=== PATIENT | male | born 1980 | race Caucasian/White ===

== ENCOUNTER 2023-03-03 06:11 | Day surgery (SDC) | payer MEDICAID, SELFPAY ==
[2023-03-03] VITALS (11 sets, daily range): BP systolic 100–130; BP diastolic 64–92; PULSE 57–71; RESP 10–18; TEMP 35.8–36.5; O2SAT 96–100; BMI 31.6
--- NOTE | 2023-03-03 06:40 | W.PM.PROGNOT ---
Date of Service Date of service: 03/03/23 Time of Service: 06:40 Assessment and Plan Assessment and plan (1) Right inguinal hernia: Status: Acute Assessment and plan: I saw Jamie in same-day surgery today for his hernia repair. We reviewed the surgery, risks and benefits and complications. I had a long discussion with Jamie regarding the pathophysiology of hernias as well as the repair.? I am a little bit concerned about the fact that he seems to make a lot of scar tissue.? I discussed with him that with increased scar tissue formation he could have some chronic type pain from the mesh.? Risks, benefits and complications have been reviewed. Complications include but are not limited to bleeding, infection, injury to vas, vessels and nerves, injury to bowel, recurrence (3-5%), chronic pain and adverse reaction to medications. Questions were entertained and answered to their satisfaction and they wished to proceed.? I went over the information slowly with Jamie.? He does have a hard time retaining information so I have given him a lot of written information for him to look at regarding the operation, and the postop care. Subjective Subjective Interval history since last seen: Jamie is here today for a right inguinal hernia repair. He has been having some discomfort in the left inguinal area and wonders whether he is got a hernia on that side. He has not noted a bulge. Otherwise he has no new concerns. Exam Const General: comfortable and no acute distress Resp Effort & Inspection: normal respiratory effort Auscultation: clear to auscultation bilaterally GI Inspection: normal to inspection Palpation: soft, no hepatosplenomegaly and hernia (RIH) Objective Last Vital Signs Temp 97.5 F L 03/03/23 06:23 Pulse 71 03/03/23 06:23 Resp 18 03/03/23 06:23 BP 130/92 H 03/03/23 06:23 Pulse Ox 99 03/03/23 06:23 Time Spent with Patient Time Spent with Patient: 25-34 minutes Time was spent: counseling the patient
--- NOTE | 2023-03-03 06:41 | ROE_ITS ---
Date of service: 03/03/23 Time of Service: 08:34 Operative Note Operative Note DATE OF PROCEDURE: 03/03/23 PRE-OP DIAGNOSIS: right inguinal hernia POST-OP DIAGNOSIS: other (right indirect inguinal hernia) PROCEDURE: RIH repair with mesh SURGEON: Wendy Cortez PACK TRAIN DRIVER: Ebony Bull Refer to Anesthesia Record ESTIMATED BLOOD LOSS: 15 PATHOLOGY: none sent COMPLICATIONS: None Patient was transported to: PACU Patient's condition: stable Implants: PERFIX Light Plug: REF- [id number] LOT- [id number] Findings: Jamie is here today because of a right inguinal hernia which has been causing him pain.? It has been getting larger over the last few months.? I had a long discussion with Jamie regarding the pathophysiology of hernias as well as the repair.? I am a little bit concerned about the fact that he seems to make a lot of scar tissue.? I discussed with him that with increased scar tissue formation he could have some chronic type pain from the mesh.? Risks, benefits and complications have been reviewed. Complications include but are not limited to bleeding, infection, injury to vas, vessels and nerves, injury to bowel, recurrence (3-5%), chronic pain and adverse reaction to medications. Questions were entertained and answered to their satisfaction and they wished to proceed.? I went over the information slowly with Jamie.? He does have a hard time retaining information so I have given him a lot of written information for him to look at regarding the operation, and the postop care. Procedure Description: After informed consent was obtained the patient was taken to the operating room and placed in a supine position. Monitors and SCDs were applied and a timeout was done. The patient's name, date of , procedure type, procedure site, allergies to medications, preoperative antibiotic, and DVT prophylaxis were all reviewed. Fire risk was assessed. Next anesthesia did a tap block on the right side under ultrasound guidance. Please see their separate dictation. Once anesthesia was done the abdomen was prepped and draped in a sterile surgical fashion. 0.5% Marcaine was injected into the dermis in the right lower quadrant. An incision was made with a 10 blade in the right lower quadrant. Dissection was done with cautery through the subcutaneous tissues and Darion's fascia down to the external oblique fascia. The external ring was identified and the external oblique fascia was opened sharply through the external ring. The cut fascia was grasped with hemostats the cord structures were identified and a Dover drain was placed around them. The ilioinguinal nerve was identified and cut. The cremasteric muscle was dissected away from the cord structures using both cautery and blunt dissection. A hernia sac was identified and removed from the cord structures using blunt dissection. The hernia sac was suture ligated and amputated. The remnant was pushed back into the peritoneum. An XL plug was placed into the indirect defect and secured with 3-0 proline. A flat piece of mesh was then attached to the lacunar ligament using a 2-0 Prolene double armed suture. The mesh was secured laterally and medially with a 2-0 Prolene, with a running suture. The tails of the mesh were wrapped around the cord structures effectively cinching down the internal ring. Once the mesh was secured the tissues were irrigated with some normal saline. No bleeding was identified. The external oblique fascia was reapproximated using 2-0 Vicryl running suture. The Daroin's fascia was reapproximated using interrupted 3-0 Vicryl. The dermis was reapproximated with a running 4-0 Vicryl. The skin was cleaned and dried and skin affix was applied. The patient was woken up and taken back to recovery in stable condition. There were no immediate complications. Sponge, instrument and needle counts were correct at the end of the case x2.
--- NOTE | 2023-03-03 06:42 | PDOC.DSDIS_ITS ---
Date of service: 03/03/23 Time of Service: 06:42 Discharge Plan Disposition Patient Disposition: Home Condition: Stable Discharge Details Reason For Visit: RIH repair Attending Provider: Wendy Cortez Primary Care Provider: Cece Deleon Home Meds and New Rx's Prescriptions: New tramadol 50 mg tablet 50 mg PO Q6H PRN (Reason: pain) Qty: 14 0RF Rx Instructions: Postop pain Continued fluticasone propion-salmeterol [Advair Diskus] 250-50 mcg/dose blister with device 1 inh inhalation BID naproxen sodium [Aleve] 220 mg capsule 220 mg PO BID PRN amlodipine 5 mg tablet 5 mg PO DAILY armodafinil 50 mg tablet 50 mg PO BID Centrum Silver 0.4 mg-300 mcg- 250 mcg tablet 1 tab PO DAILY clonidine HCl 0.3 mg tablet 0.3 mg PO DAILY diclofenac sodium [Arthritis Pain (diclofenac)] 1 % gel 2 g topical QID PRN Rx Instructions: apply to single elbow, wrist or hand; for hand includes palm/fingers/back of hand epinephrine 0.3 mg/0.3 mL auto-injector 0.3 mg IM ONCE Rx Instructions: as a single dose; may repeat once fluticasone propionate 50 mcg/actuation spray,suspension 2 spray intranasal DAILY Rx Instructions: administer into each nostril furosemide 20 mg tablet 20 mg PO DAILY lisinopril 10 mg tablet 10 mg PO DAILY loratadine [Allergy Relief (loratadine)] 10 mg tablet 10 mg PO DAILY melatonin 5 mg capsule 5 mg PO HS PRN modafinil 100 mg tablet 100 mg PO DAILY (DME) nebulizer and compressor Device See Rx Instructions .Route Rx Instructions: As directed omeprazole 40 mg capsule,delayed release(DR/EC) 40 mg PO DAILY albuterol sulfate [ProAir HFA] 90 mcg/actuation HFA aerosol inhaler 2 puff inhalation QID propranolol 80 mg capsule,extended release 24hr 80 mg PO DAILY solriamfetol 150 mg tablet 150 mg PO DAILY tramadol 100 mg tablet 100 mg PO QHS Vyvanse 40 mg capsule 40 mg PO QAM Xywav 0.5 gram/mL solution 2.25 g PO BID Rx Instructions: administer the first dose at bedtime and the second dose 2.5-4 hours later Discharge Instructions Instructions: Inguinal Hernia Repair (DC) Additional Instructions: Activity at Home after surgery: 1. Make sure you walk outside at least 4 times per day 2. You should be able to climb a flight of stairs 3. No driving while in pain or taking pain medications 4. No strenuous activity or heavy lifting (no lifting, pulling or pushing >10 lb) for 4 weeks (open surgery) Diet, Nutrition, & wound healin. Avoid alcohol until after you are recovered from your surgery 2. Make sure to eat plenty of lean protein (meat, fish, eggs, cottage cheese, beans) 3. Eat a variety of fruits and vegetables. Eat plenty of high fiber foods to avoid constipation. 4. Drink plenty of liquids to stay hydrated and avoid constipation Pain Medications: 1. Tylenol 650mg every 6 hours as needed and Ibuprofen 600 mg every 6 hours as needed. You may alternate between the 2 medications every 3 hours 2. If a narcotic has been prescribed take as directed only for breakth rough pain For Constipation: 1. Take Milk of Magnesia or MiraLax as needed for constipation Other: 1. You may shower daily. Do not scrub the incisions 2. Do not soak the incisions for 1 week 3. You may alternate ice and heat as needed for pain and swelling Wound Care: 1. Keep the incisions clean and dry Please call our office if you develop: 1. Fevers >101.5 2. Nausea or Vomiting 3. Worsening pain 4. Redness and thick discharge from the wounds If after hours please call the Hospital at and ask to speak to the on-call surgeon Referrals: Wendy Cortez MD [ [facility] STAFF PHYSICIAN] - Activity:: see above Shower/Bathe:: 24 hours Diet:: As Tolerated Discharge Orders Discharge Orders: Discharge Order (Routine); Ordered 03/03/23 Ordered By: Wendy Cortez DS: Diagnosis Discharge Diagnosis (1) Right inguinal hernia: Status: Acute Asessment and Plan: The patient is doing well post-op from their [facility] repair surgery.? They are having no nausea or vomiting. They are tolerating liquids and a snack. The pt is not having any chest pain or SOB.? Their pain is adequately controlled. They have been able to urinate.? he did have some double vision when he woke up. The scolpolamine patch was removed by Anesthesia and his double vision has improved. 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 Will have patient and family monitor and give us a call if there is worsening. he also had some weekness of his RLE. That has also improved and he feels stable on his feet. ?HEENT:? no eye pain/drainage/redness/swelling. Mild sore throat ?Cardio- NSR, no chest pain, BP stable- see VS record ?Pulm: no sob or productive cough. No hemoptysis ?Incision- dressing is c/d/i w/ no excessive bleeding or drainage ?I discussed with the patient the findings at the time of surgery and the patient?s progress. ?We reviewed expectations at home; what the patient could expect for recovery time, and in the post-operative period.? We discussed the importance of walking to avoid blood clots and pneumonia.? We discussed and reviewed the patient's post-operative wound care and dressing needs.?? We reviewed their step-scott pain management plan, Rx called to the pharmacy of their choice.? We reviewed activity and limitations-see discharge instructions. We reviewed warning signs, and when to seek medical attention- see d/c instructions.?? Patient was given a postoperative follow-up appointment. Patient verbalized understanding of their postoperative instructions, how do to take care of themselves and their incision, and the pain management plan. Please see discharge instructions.?
[2023-03-03] MEDS: Gabapentin 300 MG CAP 600 MG PO (06:53)
[2023-03-03] MEDS: Acetaminophen 500 MG TAB 1000 MG PO (06:53)
[2023-03-03] MEDS: Celecoxib 200 MG CAP PO (06:53)
--- NOTE | 2023-03-03 07:01 | W.ANESPRE ---
General Info Date of Service Date Performed: 03/03/23 Height: 5 ft 9 in Weight: 97 kg Body Mass Index (BMI): 31.6 Surgical Procedure: Operation Date: 03/03/23 07:40 Proposed Procedure Side Surgeon p Herniorrhaphy Inguinal Right Wendy Cortez MD Meds Allergies and Home Medications Allergies Allergy/AdvReac Type Severity Reaction Status Date / Time bee pollen Allergy Verified 03/02/23 14:42 mold AdvReac Verified 03/02/23 14:42 dust AdvReac Uncoded 03/02/23 14:42 non-medication chemicals AdvReac Uncoded 03/02/23 14:42 Home Medication Medication Instructions Recorded albuterol sulfate 90 mcg/actuation 2 puff inhalation QID 02/18/23 aerosol inhaler (ProAir HFA) amlodipine 5 mg tablet 5 mg PO DAILY 02/18/23 armodafinil 50 mg tablet 50 mg PO BID 02/18/23 clonidine HCl 0.3 mg tablet 0.3 mg PO DAILY 02/18/23 diclofenac sodium 1 % topical gel 2 g topical QID PRN 02/18/23 (Arthritis Pain (diclofenac)) epinephrine 0.3 mg/0.3 mL 0.3 mg IM ONCE 02/18/23 injection, auto-injector fluticasone 250 mcg-salmeterol 50 1 inh inhalation BID 02/18/23 mcg/dose blistr powdr for inhalation (Advair Diskus) fluticasone propionate 50 2 spray intranasal DAILY 02/18/23 mcg/actuation nasal spray,suspension furosemide 20 mg tablet 20 mg PO DAILY 02/18/23 lisdexamfetamine 40 mg capsule 40 mg PO QAM 02/18/23 (Vyvanse) lisinopril 10 mg tablet 10 mg PO DAILY 02/18/23 loratadine 10 mg tablet (Allergy 10 mg PO DAILY 02/18/23 Relief (loratadine)) melatonin 5 mg capsule 5 mg PO HS PRN 02/18/23 modafinil 100 mg tablet 100 mg PO DAILY 02/18/23 enrbfkkk-poq-yqtxd acid 0.4 1 tab PO DAILY 02/18/23 mg-lycopene 300 mcg-lutein 250 mcg tablet (Centrum Silver) naproxen sodium 220 mg capsule 220 mg PO BID PRN 02/18/23 (Aleve) nebulizer and compressor 02/18/23 omeprazole 40 mg capsule,delayed 40 mg PO DAILY 02/18/23 release propranolol 80 mg capsule,24 80 mg PO DAILY 02/18/23 hr,extended release sodium, calcium, magnesium, 2.25 g PO BID 02/18/23 potassium oxybates 0.5 gram/mL oral soln (Xywav) solriamfetol 150 mg tablet 150 mg PO DAILY 02/18/23 tramadol 100 mg tablet 100 mg PO QHS 02/18/23 Current Visit Medications: Current Medications Generic Name Dose Route Start Last Admin Trade Name Freq PRN Reason Stop Dose Admin Acetaminophen 1,000 mg 03/03/23 06:00 Acetaminophen 500 Mg Tab PO 03/03/23 23:59 PREOP JULIÁN Celecoxib 200 mg 03/03/23 06:00 Celecoxib 200 Mg Cap PO 03/03/23 23:59 PREOP JULIÁN Gabapentin 600 mg 03/03/23 06:00 Gabapentin 300 Mg Cap PO 03/03/23 23:59 PREOP JULIÁN Ringer's Solution 1,000 mls @ 80 mls/hr 03/03/23 06:00 IV 03/03/23 23:59 INFUSION JULIÁN Cefazolin Sodium/Dextrose 2 gm in 50 mls @ 100 mls/hr 03/03/23 06:00 Ancef Duplex IVPB 03/03/23 23:59 PREOP JULIÁN Ondansetron HCl 4 mg/ Sodium 52 mls @ 200 mls/hr 03/03/23 06:43 Chloride IVPB 04/02/23 06:42 Q6H PRN PRN IV Miscellaneous Supplies 1 each 03/03/23 06:00 Iv Access IV 03/03/23 23:59 DIRECTED JULIÁN Sodium Chloride 0 ml 03/03/23 06:00 Normal Saline Flush 10 Ml Syr IV 03/03/23 23:59 PRN PRN Sodium Chloride 0 ml 03/03/23 06:00 Normal Saline 10 Ml Vial IJ 03/03/23 23:59 DIRECTED PRN Sterile Water 0 ml 03/03/23 06:00 Water,Injection,Sterile 10 Ml Vial IJ 03/03/23 23:59 DIRECTED PRN PFSH Active Problems Active Problems: Problem Status Onset Code Difficulty urinating R39.198 Right inguinal hernia K40.90 History of traumatic brain injury Z87.820 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 JOSE L (obstructive sleep apnea) G47.33 Dyslexia R48.0 Disorder of vision H53.9 Degenerative joint disease involving multiple joints M15.9 Chronic pain syndrome G89.4 Chronic insomnia F51.04 Attention deficit disorder of adult with hyperactivity F90.9 Anxiety disorder F41.9 Medical History Medical History Acute asthma Arthritis Arthropathy Concussion injury of body structure Depressive disorder Encounter for lumbar puncture 06/09/2016 Epigastric pain Essential hypertension Leg cramps Lesion of ulnar nerve Lumbar radiculopathy Neuropathy PLMD (periodic limb movement disorder) Shoulder pain Surgical History Surgical History H/O nasal septoplasty 01/27/19 H/O wrist surgery History of carpal tunnel surgery 09/11/2015 08/27/2015 History of colonoscopy 12/16/18 History of decompression of median nerve History of esophagogastroduodenoscopy (EGD) 12/16/2018 History of uvulectomy Hx laparoscopic cholecystectomy 03/06/19 Tobacco Smoking/Tobacco Use Status: Never Alcohol Alcohol Intake: current Alcohol intake frequency: a few times a week Alcohol type: beer Substance Use Substance use: Never Substance use type: does not use Vital Signs and Lab Results Vital Signs Most Recent Vital Signs in EMR: Most Recent Vital Signs Temp Pulse Resp BP Pulse Ox 36.4 C L 71 18 130/92 H 99 03/03/23 06:23 03/03/23 06:23 03/03/23 06:23 03/03/23 06:23 03/03/23 06:23 Lab Results Blood Type / Crossmatch: No Data to Display Complete Blood Count: No Data to Display Complete Metabolic Panel: No Data to Display Liver Function Panel: No Data to Display Coagulation Panel: No Data to Display Cardiac Panel: No Data to Display Arterial Blood Gas: No Data to Display Venous Blood Gas: No Data to Display Pancreas Panel: No Data to Display Thyroid Panel: No Data to Display Infectious Disease: No Data to Display Blood Cultures: No Data to Display Toxicology Panel: No Data to Display Anesthesia Assessment and Plan Anesthesia History Personal History: No History of Anesthesia Complications Family History: No Family History of Anesthesia Complications Exercise Tolerance Exercise Tolerance: Metabolic Equivalents>4 Pertinent Negatives Pertinent Negatives: No Symptoms of GERD, No Major Cardiovascular Symptoms or Complaints and No Major Pulmonary Symptoms or Complaints Cardiac & Pulmonary Exam Cardiac Exam: Normal S1/S2 Heart Sounds Pulmonary Exam: Clear Bilateral Breath Sounds Implantable Cardiac Device Does patient have a Pacemaker or an ICD?: No Airway Exam Known Difficult Airway: No Mallampati Class: 2 Mouth Opening: Normal (> 3cm) Thyromental Distance: Greater than 3 cm Neck Range of Motion: Full ROM Neck Circumference: Normal Teeth Condition: Normal Dentition (some chipped teeth) Airway Comments: No uvula, ASA Classification ASA Score: ASA 2 Emergency Case?: No NPO Status NPO Status: NPO Clears >2 hours, Solids >8 hours Anesthesia Plan Resuscitation Status: Full Code Anesthesia Technique: General Anesthesia Airway Planned: Endotracheal Tube Pain Management: Surgeon and patient request nerve block Monitors Used: Standard Monitors
[2023-03-03] MEDS: Lactated Ringers 1,000 ML 80 ML IV (07:08)
[2023-03-03] MEDS: ceFAZolin 2 GM/50 ML BAG IVPB (07:37)
--- NOTE | 2023-03-03 08:02 | W.ANESNERVE ---
Nerve Block Single Injection Procedure Date and Time Date Performed: 03/03/23 Procedure Start: 07:46 Location Where Procedure Performed Procedure Location: Operating Room Procedure Stop: 07:54 Reason Performed: Postoperative Analgesia Requesting Provider: Wendy Cortez Timeout Performed Timeout Performed: Yes Monitoring Used ECG, Blood Pressure, SpO2 and ETCO2 Sterility Sterility: Hand Hygiene, Surgical Cap, Surgical Mask, Sterile Gloves and Chlorhexidine Sedation Given During Procedure Sedation Given (Indicate Dose Given): No Sedation given Patient Mental Status Patient Mental Status: Performed under general anesthesia Nerve Block 1st Nerve Block: Laterality: Right Block Type: TAP Unilateral Ultrasound Image Saved?: Yes Needle / Catheter Used: 100mm SonoPlex II Local Anesthetic Bolus (Indicate Dose Given): Injected in 3-5ml increments after negative blood aspiration and Bupivacaine 0.25% Dose:: 20 ml Additives (Indicate Dose Given): None Ultrasound: Sterile probe cover and gel used Nerve Stimulator: Not Used Paresthesia: None Procedure Tolerated: No Complications and Patient tolerated well Procedure Outcome: Successful Performed By: Eugene Denny
[2023-03-03] MEDS: Bupivacaine 0.25% Pres-Free 30 ML VIAL (08:28)
[2023-03-03] MEDS: fentaNYL 100 MCG/2 ML VIAL IVP (09:23)
--- NOTE | 2023-03-03 10:49 | PDOC.ANES ---
Date of service: 03/03/23 Time of Service: 10:20 Anesthesia Note Report Anesthesia Note: Asked to see pt for complaint of double vision. Normal CSM's in all extremities, equal smile. No SOB/Chest pain or headache. This is unlikely to be related to the nerve block and does not support a neurology emergency. This is very likely due to scopolamine patch behind his left ear. This patch was removed and medication wiped away. This will most liekly resolve overt eh next few hours. If pt. is comfortable with this plan, we will plan on discharge when he meets criteria.
[2023-03-03] MEDS: traMADol 50 MG TAB PO (11:16)
--- NOTE | 2023-03-03 12:12 | W.ANESPOSTOP ---
Postoperative Evaluation Date, Time and Location Date Performed: 03/03/23 Time Performed: 12:12 Patient Location: Day Surgery Unit Vital Signs Most Recent Imported Vital Signs: Most Recent Vital Signs Temp Pulse Resp BP Pulse Ox 35.9 C L 57 L 18 114/77 100 03/03/23 11:17 03/03/23 11:17 03/03/23 11:17 03/03/23 11:17 03/03/23 11:17 Pain Score Most Recent Pain Score: Most Recent Pain Score Pain Level 4 03/03/23 11:40 Assessment Mental Status: Awake (Alert & Oriented to Patient Baseline) Airway and Respiratory Function: Patent airway with normal (patient baseline) respiratory exam Cardiovascular Function: Hemodynamically Stable Hydration Status: Adequately Hydrated Nausea & Vomiting: No Nausea or Vomiting Pain: Pain is tolerable per patient Peripheral Nerve Block: Regional nerve block not resolved at time of post operative discharge Postoperative Comments:: Double vision is improving. Noted some quad weakness to the ispsilateral side as the surgical site. Dicussed likelihood of block versus local from hernia, while possibly the block I am leaning due to proximity most likley local from the surgical site. Either way the quad weakness should resolve as the local anesthetic is cleared over the next 24-48 hours. I did recommend the patient not move cows today as he does not have full mobility and did have a local anesthetic today. Patient demonstrated understanding, denied quesitons. Appropriate for discharge.
== END 2023-03-03 12:15 | disposition home or self-care (01) ==
PROVIDERS: PCP Internal Medicine; Visit Provider Surgery
PROC: (CPT 49505; principal; 2023-03-03 07:30)
DX: K40.90 Unilateral inguinal hernia, without obstruction or gangrene, not specified as recurrent (principal); G47.33 Obstructive sleep apnea (adult) (pediatric); I10 Essential (primary) hypertension; J45.909 Unspecified asthma, uncomplicated
CPT/HCPCS: 49505; 76942; C1781; J0690; J1100; J2250; J2405; J3010

== ENCOUNTER 2023-03-12 09:49 | Outpatient (REF) | payer MEDICAID, SELFPAY ==
[2023-03-12 10:14] LABS: Bilirubin Negative (Negative); Blood Negative (Negative); Clarity Clear (Clear); Glucose Negative (Negative); Ketones Negative (Negative); Leukocyte Esterase Negative (Negative); Nitrite Negative (Negative); Urobilinogen 0.2 mg/dL (Up to 0.2)
[2023-03-12 10:50] LABS: BUN 20 mg/dL (7-18); CREATININE 0.9 mg/dL (0.70-1.30); Calcium 9.1 mg/dL (8.5-10.1); Chloride 104 mmol/L (98-107); Estimated GFR 108.01 (mL/min/1.73m2); Glucose 100 mg/dL (74-106); Magnesium 2.1 mg/dL (1.8-2.4); Sodium 139 mmol/L (136-145)
== END 2023-03-12 09:50 | disposition home or self-care (01) ==
LOC: LBN 09:49
PROVIDERS: PCP Internal Medicine; Visit Provider Surgery
DX: R39.89 Other symptoms and signs involving the genitourinary system (principal); R32 Unspecified urinary incontinence; R39.198 Other difficulties with micturition; I10 Essential (primary) hypertension; Z87.820 Personal history of traumatic brain injury
CPT/HCPCS: 80048; 81003; 83735

== ENCOUNTER 2023-03-31 02:00 | Outpatient (CLI) | payer MEDICAID, SELFPAY ==
--- NOTE | 2023-03-31 07:00 | DI.US_ITS ---
Exam(s) US RENAL EXAM: US RENAL CLINICAL HISTORY: urinary incontinence,nocturnal eneuresis,n39.44,r32. TECHNIQUE: Rodriguez scale, color and spectral Doppler were used. COMPARISON: No exams were available for comparison FINDINGS: Renal size in cm: Right: 10.9. Left: 11.9. Echogenicity: Normal. Hydronephrosis: No. Cyst or mass: No. Nephrolithiasis: No. Other findings: None. Bladder:Normal. Ureteral jets: Right: Visualized and unremarkable. Left: Visualized and unremarkable. Prevoid vol:347 cc Postvoid vol:0 cc Prostate: 36 cc Renal color flow: Symmetric and within normal limits. IMPRESSION: 1. Mildly enlarged prostate gland. 2. Complete emptying of the bladder upon voiding. No evidence of postvoid urinary bladder volume res idual. 3. Unremarkable kidneys. DATA REPOSITORY:
== END 2023-03-31 02:20 ==
LOC: DI 02:00
PROVIDERS: PCP Internal Medicine; Visit Provider Surgery
DX: N39.44 Nocturnal enuresis (principal); R32 Unspecified urinary incontinence; N40.1 Benign prostatic hyperplasia with lower urinary tract symptoms
CPT/HCPCS: 76770

== ENCOUNTER 2023-11-03 09:11 | Outpatient (CLI) | payer MEDICAID, SELFPAY ==
[2023-11-03] VITALS (11 sets, daily range): BP systolic 151–187; BP diastolic 100–117; PULSE 61–74; RESP 16–77; TEMP 36.7; O2SAT 96–100
--- NOTE | 2023-11-03 11:00 | DI.RAD_ITS ---
Exam(s) XR CHEST 2V PA LATERAL EXAM: XR CHEST 2V PA LATERAL CLINICAL HISTORY: r/o Pneumothorax TECHNIQUE: 2D digital imaging was performed of the chest. Two images were obtained. PA and lateral views were obtained. COMPARISON: No exams were available for comparison FINDINGS: MEDIASTINUM: Normal. HEART: Normal. PULMONARY VASCULATURE: Normal. LUNGS: Clear. PLEURAL SPACE: No pleural effusion or pneumothorax. BONE:Within normal limits for the patient's age. There is an old distal left clavicular fracture def ormity. OTHER FINDINGS:Normal. IMPRESSION: No acute pulmonary findings. DATA REPOSITORY: RADIATION DOSE DELIVERED:
[2023-11-03] MEDS: methylPREDNISolone ACETATE 40 MG/ML VIAL IJ (12:11)
[2023-11-03] MEDS: Lidocaine 2% Pres-Free 5 ML VIAL IJ (12:11)
--- NOTE | 2023-11-03 15:17 | PDOC.PAIN ---
Date of service: 11/03/23 Time of Service: 11:30 US Guided Injections Type of Ultrasound Guided Injection: Middle back Bilateral Paraspinous and Rhomboid muscle and Neck Bilateral Trapezius muscle Trigger Point Injection Pre-Procedural Evaluation Tenderness to palpation over the muscles proposed to inject Referral Patient has been referred to the [facility] for Bilateral Paraspinous and Rhomboid muscle Middle back and Bilateral Trapezius muscle Neck Trigger Point Injection for a chief complaint of mid-back and lower neck pain Pre-Procedural Pain Score Pre-procedural pain score: 7/10 Reason for Exam Muscle pain Patient Interview Patient was interviewed and medical record reviewed: Yes There were no contraindications to performing an US guided procedure. Risks,expected side effects, potential benefits were reviewed. The patient consent form was signed and witnessed. Standard time out procedure was performed. Patient Safety No skin issues over the area to be injected Procedure Description No sedation given for procedure Patient was placed in the prone position and the following Pulse Ox applied. Pre-Procedure ultrasound scanning performed using a Linear 9 MHz probe Site Preparation Chloroprep Local Anesthesia Skin and subcutaneous tissues anesthetized with: 10 mL of Lidocaine 2%. A 21 G 3.5 Pajunk ultrasound needle was placed under live US guidance using an in-plane approach to the target area. After visualization of the needle tip at the target area Depo-Medrol 40mg per cc were used. Total of Injectate/Medication Note: 1cc Negative aspiration for blood. [place] were removed without difficulty. Ultrasound images were captured and stored. Patient Mental Status Patient was alert during procedure Vital Signs Vital signs were stable throughout the procedure and recorded by nursing. Follow Up/Discharge Follow up plans and appointments were discussed with patient. Post procedure instruction was given as documented in nursing documentation. Post Procedure Pain Post Procedure Pain: 3/10 Patient tolerated procedure well Procedure Outcome: Successful Comments: He did have some back and chest spasms as well as a hard time finding words and taking a deep breath after the procedure. We did watch him for one hour after the procedure and the symptoms resolved. We did obtain an X-ray of the chest to rule out pneuomothorax as the procedure was completed over the lungs and he was having some difficulty taking deep breaths. His pulse ox was normal the entire time. His chest x-ray was negative for pneumothorax. After an hour of observation, he was found to be able to walk on his own and felt good by his own account. He was discharged with his father at that time. He will call back, call his PCP, or go to an ED if his symptoms return. Trigger Point Injection 3+muscles Non US Guided Injections Procedure Description Patient was placed in the prone position Post Procedure Pain Post Procedure Pain: 3
== END 2023-11-03 09:12 | disposition home or self-care (01) ==
LOC: PC 09:12
PROVIDERS: PCP Internal Medicine; Visit Provider Preventive Medicine Occupational Medicine
DX: M54.6 Pain in thoracic spine (principal); M54.2 Cervicalgia
CPT/HCPCS: 00123; 20553; 76942; 71046; J1030

== ENCOUNTER 2023-11-23 11:30 | Outpatient (CLI) | payer MEDICAID, SELFPAY ==
[2023-11-23 17:56] LABS: PSA, Screening 1.2 ng/mL (<=2.5)
== END 2023-11-23 11:31 | disposition home or self-care (01) ==
LOC: LBO 11:31
PROVIDERS: PCP Internal Medicine; Visit Provider Nurse Practitioner Gerontology
DX: R39.198 Other difficulties with micturition (principal); R39.89 Other symptoms and signs involving the genitourinary system; N39.44 Nocturnal enuresis; R36.1 Hematospermia; Z12.5 Encounter for screening for malignant neoplasm of prostate
CPT/HCPCS: 36415; 84153

== ENCOUNTER → 2023-11-24 01:16 | Outpatient (CLI) | payer MEDICAID, SELFPAY ==
--- NOTE | 2023-11-24 12:00 | DI.US_ITS ---
Exam(s) US SCROTUM EXAM: US SCROTUM CLINICAL HISTORY: b/l scrotal pain L>R,n50.82 TECHNIQUE: Ultrasound of the testes performed using grayscale, color, and Doppler imaging. COMPARISON: US POCUS EXAM from 11/03/2023 FINDINGS: RIGHT HEMISCROTUM: The right testicle exhibits normal size and echo architecture with no evidence of intratesticular mas s. Vascular flow was demonstrated within the right testicle, including arterial waveforms. The epididymis appears unremarkable. There are no epididymal head cysts. Mild right hydrocele noted. No varicocele. LEFT HEMISCROTUM: The left testicle exhibits normal size and echo architecture with no evidence of intratesticular mass . Vascular flow is demonstrated within the left testicle, including arterial waveforms. The epididymis appears unremarkable. There are no epididymal head cysts. Small left hydrocele. IMPRESSION: 1. No evidence of testicular mass nor testicular torsion. 2. Small hydroceles are seen bilaterally, right larger than left. 3. Mild left varicocele. DATA REPOSITORY:
== END ==
PROVIDERS: PCP Internal Medicine; Visit Provider Nurse Practitioner Gerontology
DX: N50.82 Scrotal pain (principal)
CPT/HCPCS: 76870

== ENCOUNTER 2024-07-13 01:15 | Outpatient (CLI) | payer MEDICAID, SELFPAY ==
--- NOTE | 2024-07-13 12:13 | DI.CT_ITS ---
Exam(s) CT ABDOMEN PELVIS WO/W EXAM: CT ABDOMEN PELVIS WO/W CLINICAL HISTORY: hematuria workup,R31.0. TECHNIQUE: Imaging Protocol: Axial computed tomography images with coronal and sagittal reformatted images were created and reviewed. Images were performed from the lung bases through the ischial tuberosities before IV contrast and fol lowing IV contrast using a 70 second delay, followed by 7 minutes delayed images. CONTRAST MATERIAL: Intravenous: Omnipaque 350 Contrast volume:100 cc Oral: no COMPARISON: US US RENAL from 03/31/2023 FINDINGS: Lung Bases: Normal where visualized. Liver: Normal density. No measurable mass. Gallbladder and biliary tract: No biliary dilation. Pancreas: Normal density, no abnormal calcifications or inflammatory process. Spleen: Normal. Kidneys: Normal size, contour and axis. No radiodense stones or obstructive uropathy. 14 millimeter c ircumscribed low-density lesion is noted at the upper pole of the right kidney. Not definitely a sim ple cyst. Adrenal glands: No masses seen. Lymph nodes: Within normal limits. Abdominal Aorta: Abdominal portion non-dilated. Soft tissues: Unremarkable. Bladder: Mild diffuse wall thickening however the bladder is not well distended.. No evidence of a m ass.No evidence of calculi. Bowel: Stomach unremarkable. No obstruction or bowel wall thickening. Appendix normal. Peritoneal cavity: No ascites, collection or mesenteric inflammatory response. Bones: Unremarkable for age.. Reproductive organs: Prostate is slightly enlarged. IMPRESSION: 14 millimeter low-density lesion at the upper pole of the right kidney is not definitely a simple cys t. Due to its small size it is somewhat difficult to characterize. MRI should be considered further evaluation given history of hematuria. No evidence of urinary tract calculi. No evidence of hydronephrosis. RADIATION DOSE DELIVERED: Total DLP DATA REPOSITORY: All CT scans at this facility are submitted to the National Radiology Data Registry (NRDR) Dose Index Registry (DIR) with the [employer] ([employer]). RADIATION OPTIMIZATION: All CT scans at this facility use at least one of these dose optimization te chniques: automated exposure control; mA and/or kV adjustment per patient size (includes targeted exa ms where dose is matched to clinical indication); or iterative reconstruction.
[2024-07-13] MEDS: Normal Saline - Diluent 50 ML VIAL IJ (15:19)
[2024-07-13] MEDS: Omnipaque 350 MG/ML 100 ML BTL IJ (15:19)
[2024-07-14 08:16] LABS: Estimated GFR 94.59 (mL/min/1.73m2)
== END 2024-07-13 01:35 ==
LOC: DI 01:15
PROVIDERS: Nurse Practitioner Gerontology; PCP Internal Medicine; Visit Provider Urology
DX: N20.0 Calculus of kidney
CPT/HCPCS: 74178; 82565; J3490

== ENCOUNTER 2024-09-28 16:30 | Outpatient (CLI) | payer MEDICAID, SELFPAY ==
[2024-09-28 16:00] LABS: Abs Immature Grans 0.06 10^3/uL (0.0-0.06); Absolute Basophil Count 0.05 10^3/uL (0.0-0.2); Absolute Eosinophil Count 0.21 10^3/uL (0.0-0.7); Absolute Lymphocyte Count 2.07 10^3/uL (1.2-3.4); Absolute Monocyte Count 0.58 10^3/uL (0.1-0.8); Absolute Neutrophil Count 3.83 10^3/uL (1.2-6.7); Basophils % 0.7 %; Eosinophils % 3.1 %; HCT 43.6 % (40.0-50.0); HGB 15.2 g/dL (13.5-17.5); Immature Grans % 0.9 %; Lymphocytes % 30.4 %; MCH 30.8 pg (27.0-33.0); MCHC 34.9 % (32.0-36.0); MCV 88 fL (80-95); Monocytes % 8.5 %; Neutrophils % 56.4 %; Platelet Count 175 10^3/uL (130-400); RBC 4.93 10^6/uL (4.36-5.78); RDW 12.3 % (11.8-14.1); RDW-SD 39.8 fL
[2024-09-28 16:08] LABS: Hemoglobin A1C 5.4 % (<5.7)
[2024-09-28 16:43] LABS: C-Reactive Protein < 0.50 mg/dL (<or=0.5)
== END 2024-09-28 16:31 | disposition home or self-care (01) ==
LOC: LBO 16:31
PROVIDERS: PCP Internal Medicine; Referring Provider Surgery; Visit Provider Surgery
DX: R10.31 Right lower quadrant pain (principal); Z83.3 Family history of diabetes mellitus
CPT/HCPCS: 36415; 83036; 85025; 86140

== ENCOUNTER 2024-10-26 15:46 | Outpatient (CLI) | payer MEDICAID, SELFPAY ==
--- NOTE | 2024-10-26 14:45 | DI.RAD_ITS ---
Exam(s) XR WRIST RT COMPL NAVICULAR EXAM: XR WRIST RT COMPL NAVICULAR CLINICAL HISTORY: Chronic right wrist pain, M25.531. TECHNIQUE: 2D digital imaging was performed. Three views. COMPARISON: No exams were available for comparison FINDINGS: BONES: No acute fracture is present. No bony destructive lesion is seen. JOINTS: The carpal bones are normally aligned. There are mild degenerative changes at the scaphoid t rapezium joint. SOFT TISSUE: Normal. IMPRESSION: Mild degenerative changes at the scaphoid trapezium joint. DATA REPOSITORY: RADIATION DOSE DELIVERED:
== END 2024-10-26 16:06 ==
LOC: DI 15:47
PROVIDERS: PCP Internal Medicine; Visit Provider Preventive Medicine Occupational Medicine
DX: M25.531 Pain in right wrist (principal)
CPT/HCPCS: 73110

== ENCOUNTER 2025-01-25 13:02 | Outpatient (CLI) | payer MEDICAID, SELFPAY ==
[2025-01-25 13:12] VITALS: BP 126/73; PULSE 79; RESP 20; TEMP 36.6; O2SAT 98
[2025-01-25 13:40] VITALS: PULSE 76; O2SAT 95
[2025-01-25 13:50] VITALS: PULSE 72; O2SAT 97
[2025-01-25 14:00] VITALS: PULSE 71; O2SAT 96
--- NOTE | 2025-01-25 14:04 | PDOC.PAIN_ITS ---
Date of service: 01/25/25 Time of Service: 14:04 US Guided Injections Type of Ultrasound Guided Injection: Lower back Bilateral Paraspinous muscle and Middle back Bilateral Paraspinous muscle Trigger Point Injection Pre-Procedural Evaluation Back pain Referral Patient has been referred to the [facility] for Bilateral Paraspinous muscle Lower back and Bilateral Paraspinous muscle Middle back Trigger Point Injection for a chief complaint of Pre-Procedural Pain Score Pre-procedural pain score: 4/10 Reason for Exam Back pain Patient Interview Patient was interviewed and medical record reviewed: Yes There were no contraindications to performing an US guided procedure. Risks,expected side effects, potential benefits were reviewed. The patient consent form was signed and witnessed. Standard time out procedure was performed. Patient Safety No skin issues at the sites of he proposed injections Procedure Description No sedation given for procedure Patient was placed in the prone position and the following Pulse Ox applied. Pre-Procedure ultrasound scanning performed using a Linear 9 MHz probe Site Preparation Chloroprep Local Anesthesia Skin and subcutaneous tissues anesthetized with: 5 mL of Lidocaine 2%. A 21 G 3.5 Pajunk ultrasound needle was placed under live US guidance using an in-plane approach to the target area. After visualization of the needle tip at the target area Depo-Medrol 40mg per cc and Lidocaine 2% were used. Total of Injectate/Medication Note: 1cc Depomedrol and 10 cc of 2% Lidocaine Negative aspiration for blood. [place] were removed without difficulty. Ultrasound images were captured and stored. Patient Mental Status Patient was alert and awake during procedure Vital Signs Vital signs were stable throughout the procedure and recorded by nursing. Follow Up/Discharge Follow up plans and appointments were discussed with patient. Post procedure instruction was given as documented in nursing documentation. Discharge criteria met and patient discharged from [facility]: Yes Post Procedure Pain Post Procedure Pain: 4/10 Patient tolerated procedure well Procedure Outcome: Successful Non US Guided Injections Procedure Description Patient was placed in the prone position Post Procedure Pain Post Procedure Pain: 4/10 Coding Conscious Sedation used for procedure: No CPT Codes: TPI Single/Multi >3 Muscles *BILATERAL* - [id number] ([id number]~G5) Additional Codes: Visualization of the needle tip - Ultrasound images captured/stored: Yes ([id number]) Date of Service ([id number]) Date of service: 01/25/25
[2025-01-25] MEDS: methylPREDNISolone ACETATE 40 MG/ML VIAL IJ (14:11)
[2025-01-25] MEDS: Nerve Block Tray 1 EACH MC (14:11)
[2025-01-25] MEDS: Lidocaine 2% Multi-Dose 20 ML VIAL IJ (14:11)
== END 2025-01-25 13:03 | disposition home or self-care (01) ==
LOC: PC 13:03
PROVIDERS: PCP Internal Medicine; Visit Provider Preventive Medicine Occupational Medicine
DX: M54.50 Low back pain, unspecified (principal); M54.6 Pain in thoracic spine
CPT/HCPCS: 20553; 76942; J1010; J2003

== ENCOUNTER 2025-02-09 00:33 | Outpatient (CLI) | payer MEDICAID, SELFPAY ==
--- NOTE | 2025-02-09 06:39 | DI.MRI_ITS ---
Exam(s) MR UPPER JOINT RT WO EXAM: MR UPPER JOINT RT WO CLINICAL HISTORY: PAIN rt wrist, instability rt wrist joint,m25.331. TECHNIQUE: Multiplanar multisequence MRI was performed. COMPARISON: None. FINDINGS: BONES/ARTICULATIONS: There is no fracture nor bone contusions. No significant ulnar variance. No ev idence of avascular necrosis. Small amount of increased joint fluid in the distal radioulnar joint a nd radial carpal joint but no degenerative subarticular cysts. JOINTS: There are no degenerative subarticular cysts in the proximal carpal row. There is a small de generative subarticular cyst at the articulation between the distal scaphoid and the trapezium. Also mild degenerative changes noted in the 1st carpometacarpal joint. Scapholunate distance is normal.N o evidence of para-articular ganglion. LIGAMENTS: Scapholunate ligament is intact. There is no widening of the scapholunate distance. A tiny 1 mm cys t is noted in the medial aspect of the proximal scaphoid adjacent to this articulation. No findings in the lunate. Lunotriquetral ligament appears intact. TRIANGULAR FIBROCARTILAGE: There is partial tearing at the ulnar attachment site. CARPAL TUNNEL: There is a lung to truly orientated lipoma in the volar aspect of the carpal tunnel wh ich measures approximately 6 cm length by 1 cm wide by 0.6 cm deep. This is located lateral to the m edian nerve. The median nerve is not edematous. There is no tendinitis signal nor prominent tenosyn ovitis evident in the carpal tunnel flexor tendons. EXTENSOR TENDONS: No evidence of tendon tears nor tendinitis signal. No prominent tenosynovitis. There is mild fluid around the extensor carpi radialis longus tendon at the level of Blue's tubercl e. There is also mild fluid around the extensor carpi ulnaris tendon. OTHER: There is some degenerative cystic change in the dorsal aspect of the base of the thumb metacar pal. However, there only mild degenerative changes at the 1st carpometacarpal joint and no abnormal intraosseous signal within the trapezium. In addition there is abnormal signal within the ulnar elma ateral ligament of the thumb consistent with sprain or partial tearing IMPRESSION: 1. There is a lontitudinally orientated lipoma in the superficial aspect of the carpal tunnel measuri ng 6 cm length by 1 cm wide by 0.6 cm deep. The adjacent median nerve is not swollen and there is no evidence of flex or tendon abnormalities within the carpal tunnel. 2. There is partial tearing of the TFCC at the ulnar attachment site. 3. Very mild tenosynovitis of extensor carpi radialis longus tendon and extensor carpi ulnaris tendon . There are no tendon tears. 4. Mild degenerative changes at the articulation between the distal scaphoid and the trapezium. 5. Signal abnormality in the ulnar collateral ligament of the thumb consistent with partial tearing. No abnormal intraosseous signal at this level. DATA REPOSITORY:
--- NOTE | 2025-02-09 15:52 | DI.VRAD_ITS ---
PROCEDURE INFORMATION: Exam: MR Right Upper Extremity Joint Without Contrast; Wrist Exam date and time: 02/09/2025 10:33 AM Age: 45 years old Clinical indication: Pain; Wrist; Right; Prior surgery; Surgery date: 6+ months; Surgery type: Carpal tunnel; Additional info: Generalized wrist/thumb pain TECHNIQUE: Imaging protocol: Magnetic resonance imaging of the right upper extremity without contrast. Exam focused on the wrist. COMPARISON: CR XR WRIST RT COMPL NAVICULAR 10/26/2024 2:51 PM FINDINGS: Bones/joints: Small DRUJ effusion. Small radiocarpal effusion. Scapholunate ligament: Unremarkable. No tear. Lunotriquetral ligament: Unremarkable. No tear. Other ligaments: Small intercarpal effusion. Triangular fibrocartilage complex: Heterogeneous appearance of the ulnar attachment of the TFCC consistent partial tearing. Flexor compartment tendons: Lipoma in the carpal tunnel measuring approximately 5.7 cm by 1.0 cm by 6.3 cm in craniocaudad, transverse, and AP dimension. This is superficial to the flexor tendons and on the radial side of the median nerve. Minimal edema in the carpal tunnel consistent with mild tenosynovitis Extensor compartment tendons: Slight extensor carpi radialis brevis and longus tenosynovitis. Mild ECU tenosynovitis. Soft tissues: Unremarkable. IMPRESSION: 1. Elongated lipoma in the carpal tunnel 2. Mild ECU tenosynovitis 3. Mild tenosynovitis extensor carpi radialis brevis and longus 4. Partial tearing ulnar attachment of the TFCC 5. Mild flexor tenosynovitis carpal tunnel Dictated and Authenticated by: Paula Crawford MD. Orderin Adolfo Santiago MD
== END 2025-02-09 00:53 ==
LOC: DI 00:33
PROVIDERS: PCP Internal Medicine; Visit Provider Student in an Organized Health Care Education/Training Program
DX: M25.331 Other instability, right wrist (principal)
CPT/HCPCS: 73221

== ENCOUNTER 2025-05-10 10:42 | Outpatient (CLI) | payer MEDICAID, SELFPAY ==
[2025-05-10 10:52] VITALS: BP 131/93; PULSE 80; RESP 20; TEMP 37; O2SAT 98
[2025-05-10 11:27] VITALS: PULSE 73; O2SAT 97
[2025-05-10 11:30] VITALS: PULSE 74; O2SAT 98
[2025-05-10 11:40] VITALS: PULSE 67; O2SAT 98
--- NOTE | 2025-05-10 11:44 | PDOC.PAIN ---
Date of service: 05/10/25 Time of Service: 11:44 US Guided Injections Type of Ultrasound Guided Injection: Lower back Bilateral Paraspinous muscle, Middle back Bilateral Paraspinous muscle and Neck Bilateral Trapezius muscle Trigger Point Injection Pre-Procedural Evaluation Muscle pain to the bilateral upper back, trapezius, middle back and low back paraspinous muscles Referral Patient has been referred to the [facility] for Bilateral Paraspinous muscle Lower back, Bilateral Paraspinous muscle Middle back and Bilateral Paraspinous muscle Neck Trigger Point Injection for a chief complaint of muscle pain Pre-Procedural Pain Score Pre-procedural pain score: 5/10 Reason for Exam muscle pain Patient Interview Patient was interviewed and medical record reviewed: Yes There were no contraindications to performing an US guided procedure. Risks,expected side effects, potential benefits were reviewed. The patient consent form was signed and witnessed. Standard time out procedure was performed. Patient Safety No skin abnormalities to the proposed injection sites Procedure Description No sedation given for procedure Patient was placed in the prone position and the following Pulse Ox applied. Pre-Procedure ultrasound scanning performed using a Linear 9 MHz probe Site Preparation Chloroprep Local Anesthesia Skin and subcutaneous tissues anesthetized with: 5 mL of Lidocaine 2%. A 21 G 3.5 Pajunk ultrasound needle was placed under live US guidance using an in-plane approach to the target area. After visualization of the needle tip at the target area Lidocaine 2% were used. Total of Injectate/Medication Note: 7 cc Negative aspiration for blood. [place] were removed without difficulty. Ultrasound images were captured and stored. Patient Mental Status Patient was alert and awake during procedure Vital Signs Vital signs were stable throughout the procedure and recorded by nursing. Follow Up/Discharge Follow up plans and appointments were discussed with patient. Post procedure instruction was given as documented in nursing documentation. Discharge criteria met and patient discharged from [facility]: Yes Post Procedure Pain Post Procedure Pain: 3/10 Patient tolerated procedure well Procedure Outcome: Successful Non US Guided Injections Procedure Description Patient was placed in the prone position Post Procedure Pain Post Procedure Pain: 3/10 Coding Conscious Sedation used for procedure: No CPT Codes: TPI Single/Multi >3 Muscles *BILATERAL* - [id number] ([id number]~G5) Additional Codes: Visualization of the needle tip - Ultrasound images captured/stored: Yes ([id number]) Date of Service ([id number]) Date of service: 05/10/25 Diagnoses: muscle pain
[2025-05-10] MEDS: Lidocaine 2% Pres-Free 5 ML VIAL IJ (11:51)
[2025-05-10] MEDS: Nerve Block Tray 1 EACH MC (11:51)
== END 2025-05-10 10:43 | disposition home or self-care (01) ==
LOC: PC 10:43
PROVIDERS: PCP Internal Medicine; Visit Provider Preventive Medicine Occupational Medicine
DX: M54.6 Pain in thoracic spine (principal); M54.50 Low back pain, unspecified
CPT/HCPCS: 20553; 76942

== ENCOUNTER → 2025-09-25 00:47 | Outpatient (CLI) | payer MEDICAID, SELFPAY ==
--- NOTE | 2025-09-25 06:00 | DI.US_ITS ---
Exam(s) US RENAL EXAM: US RENAL CLINICAL HISTORY: Flank pain,Monitoring R. kidney area from CT,DIFFICULTY URINATING,NOCTURNAL TECHNIQUE: Ultrasound of both kidneys performed using standard protocol. COMPARISON: CT CT ABDOMEN PELVIS WO/W from 07/13/2024 US POCUS EXAM from 05/10/2025 FINDINGS: RIGHT KIDNEY: Measures 11 cm in length. No cysts evident. Normal cortical thickness and corticomedullary differentiation .No solid masses The superior pole region there is the 4-5 mm hyperechoic focus towards the upper pole consistent with probable small calculus. No cysts nor solid lesions seen at this level. LEFT KIDNEY: Measures 12.6 cm in length. No cysts evident. Normal cortical thickness and corticomedullary differentiaion. No solids masses. No intrarenal calculi nor hydonephrosis. URINARY BLADDER: Prevoid volume is 687 cc Postvoid volume is 2 cc No evidence of bladder mass nor diverticuli. Ureterovesical jets: Both identified and appear symmetrical Prostate gland: Mildly enlarged, measuring 4.9 cm wide by 3.5 cm by 4.7 cm for volume of 41 cc. IMPRESSION: 1. There is a small nonobstructive 4-5 mm calculus in the upper pole the right kidney. There is no cysts nor solid mass evident in the pole the right kidney on these ultrasound images. Please note that prior CT scan of July 2024 revealed a finding in the upper pole for which follow-up imaging was recommended. Recommend this patient return at no additional charge for repeat ultrasound of the superior pole of the right kidney. 2. Left kidney unremarkable. 3. Urinary bladder unremarkable. 4. Moderately enlarged prostate gland. DATA REPOSITORY:
== END ==
PROVIDERS: PCP Internal Medicine; Visit Provider Nurse Practitioner Gerontology
DX: N39.44 Nocturnal enuresis (principal); R39.198 Other difficulties with micturition; N40.0 Benign prostatic hyperplasia without lower urinary tract symptoms
CPT/HCPCS: 76770